=== PATIENT | female | born 1965 | race American Indian/Alaskan Native ===

== ENCOUNTER 2017-03-19 18:29 | Emergency (ER) | payer MEDICAID ==
[2017-03-19 20:22] LABS: Bilirubin,Urine NEG (Negative); Blood,Urine SM (Negative); Ketones,Urine NEG (Negative); Leukocyte Esterase,Urine NEG (Negative); Mucus,Urine FEW /HPF; Nitrite,Urine NEG (Negative); Protein,Urine <15 mg/dL mg/dL (Negative); Urobilinogen,Urine < 2.0 mg/dL (<2.0)
[2017-03-19] MEDS ORDERED: DECADRON IM ONE (22:39)
[2017-03-19] MEDS ORDERED: TORADOL IM ONE (22:39)
--- NOTE | 2017-03-19 22:44 | Emergency Department Report ---
ED Back Pain/Injury HPI - General Chief Complaint: Back Pain/Injury Stated Complaint: BACK PAIN Time Seen by Provider: 03/19/17 22:18 Source: patient Limitations: No Limitations - History of Present Illness Initial Comments: Patient comes into the ER today with complaints of lower back pain after lifting up a child 2 days ago. Patient states that she felt sudden sharp pain in her left lower back and a cracking sensation. Patient states that the pain was so severe that she was unable to move for a while. Patient has taken over- the-counter ibuprofen without any relief. Patient also states that she does have some discomfort when she urinates. MD Complaint: back pain -: Sudden, days(s) (2) - Related Data Home Medications Medication Instructions Recorded Confirmed Last Taken Diazepam 5 mg PO DAILY 03/19/17 03/19/17 1 Day Ago Methimazole [Tapazole] 2.5 mg PO QDAY 03/19/17 03/19/17 1 Day Ago Previous Rx's Medication Instructions Recorded Last Taken Type Meclizine [Antivert] 25 mg PO TID PRN #20 tablet 11/27/15 Unknown Rx Diazepam [Valium] 10 mg PO Q8H PRN #15 tablet 03/19/17 Unknown Rx predniSONE [Deltasone] 60 mg PO QDAY 5 Days 03/19/17 Unknown Rx traMADol [Ultram 50 MG tab] 50 mg PO Q4HR PRN #20 tablet 03/19/17 Unknown Rx Allergies Allergy/AdvReac Type Severity Reaction Status Date / Time erythromycin base Allergy Unknown Verified 11/27/15 04:54 ED Review of Systems ROS: Stated complaint: BACK PAIN Other details as noted in HPI Constitutional: denies: chills, fever Eyes: denies: eye pain, eye discharge, vision change ENT: denies: ear pain, throat pain Respiratory: denies: cough, shortness of breath, wheezing Cardiovascular: denies: chest pain, palpitations Endocrine: no symptoms reported Gastrointestinal: denies: abdominal pain, nausea, diarrhea Genitourinary: dysuria. denies: urgency, hematuria, discharge Musculoskeletal: back pain. denies: joint swelling, arthralgia Skin: denies: rash, lesions Neurological: denies: headache, weakness, paresthesias Psychiatric: denies: anxiety, depression Hematological/Lymphatic: denies: easy bleeding, easy bruising ED Past Medical Hx - Past Medical History Previous Medical History?: Yes Hx Psychiatric Treatment: Yes (anxiety) Additional medical history: hyperthyroidism - Surgical History Past Surgical History?: No - Social History Smoking Status: Never Smoker Substance Use Type: Alcohol - Medications Home Medications: Home Medications Medication Instructions Recorded Confirmed Last Taken Type Meclizine [Antivert] 25 mg PO TID PRN #20 tablet 11/27/15 03/19/17 Unknown Rx Diazepam 5 mg PO DAILY 03/19/17 03/19/17 1 Day Ago History Diazepam [Valium] 10 mg PO Q8H PRN #15 tablet 03/19/17 Unknown Rx Methimazole [Tapazole] 2.5 mg PO QDAY 03/19/17 03/19/17 1 Day Ago History predniSONE [Deltasone] 60 mg PO QDAY 5 Days 03/19/17 Unknown Rx traMADol [Ultram 50 MG tab] 50 mg PO Q4HR PRN #20 tablet 03/19/17 Unknown Rx ED Physical Exam - General Limitations: No Limitations General appearance: alert, in no apparent distress - Head Head exam: Present: atraumatic, normocephalic - Eye Eye exam: Present: normal appearance - ENT ENT exam: Present: mucous membranes moist - Neck Neck exam: Present: normal inspection, full ROM - Respiratory Respiratory exam: Present: normal lung sounds bilaterally. Absent: respiratory distress - Cardiovascular Cardiovascular Exam: Present: regular rate, normal rhythm. Absent: systolic murmur, diastolic murmur, rubs, gallop - GI/Abdominal GI/Abdominal exam: Present: soft, normal bowel sounds - Extremities Exam Extremities exam: Present: normal inspection, tenderness (left buttocks tenderness), normal capillary refill. Absent: full ROM (left hip flexion limited secondary to lumbar pain), pedal edema, joint swelling, calf tenderness - Back Exam Back exam: Present: normal inspection, tenderness (left lateral lumbar tenderness and SI joint tenderness.), muscle spasm, paraspinal tenderness. Absent: full ROM (Limited range of motion secondary to pain.), CVA tenderness (R ), CVA tenderness (L), vertebral tenderness - Neurological Exam Neurological exam: Present: alert, oriented X3, CN II-XII intact - Psychiatric Psychiatric exam: Present: normal affect, normal mood - Skin Skin exam: Present: warm, dry, intact, normal color. Absent: rash ED Course Vital Signs 03/19/17 19:48 Temperature 98.4 F Pulse Rate 90 Respiratory 18 Rate Blood Pressure 129/86 O2 Sat by Pulse 100 Oximetry ED Medical Decision Making - Medical Decision Making Patient is nontoxic and hemodynamically stable. Mechanism of injury and physical exam is more consistent with muscle strain. Patient does not have vertebral body tenderness. I see no purpose in obtaining x-ray imaging at this time. I will start patient on some anti-inflammatories, muscle relaxants, pain medications and have encouraged her to gradually increase activity over the next few days. I will give patient referral to orthopedic for further evaluation if symptoms resolve or worsen. Patient is in agreement with treatment plan and patient stable for discharge. Critical care attestation.: If time is entered above; I have spent that time in minutes in the direct care of this critically ill patient, excluding procedure time. ED Disposition Clinical Impression: Lumbar spine strain, Sciatica of left side Disposition: TO HOME OR SELFCARE Is pt being admited?: No Does the pt Need Aspirin: No Condition: Good Instructions: Sciatica (ED), Low Back Strain (ED) Prescriptions: Diazepam [Valium] 10 mg PO Q8H PRN #15 tablet PRN Reason: Muscle Spasm predniSONE [Deltasone] 60 mg PO QDAY 5 Days traMADol [Ultram 50 MG tab] 50 mg PO Q4HR PRN #20 tablet PRN Reason: Pain Referrals: PRIMARY CAREMD [Primary Care Provider] - 3-5 Days FAUSTO ALVES MD [Staff Physician] - 3-5 Days Time of Disposition: 22:46
[2017-03-19 23:11] VITALS: BP 143/87
== END 2017-03-19 23:27 | disposition home or self-care (01) ==
LOC: ED 18:29
DX: S39.012A Strain of muscle, fascia and tendon of lower back, initial encounter (principal); M54.32 Sciatica, left side; F41.9 Anxiety disorder, unspecified; E05.90 Thyrotoxicosis, unspecified without thyrotoxic crisis or storm; Z88.8 Allergy status to other drugs, medicaments and biological substances; X58.XXXA Exposure to other specified factors, initial encounter; Y93.89 Activity, other specified; Y92.89 Other specified places as the place of occurrence of the external cause; Y99.8 Other external cause status
CPT/HCPCS: 81001; 81025; 96372; 99283; J1100; J1885

== ENCOUNTER 2018-04-02 15:30 | Emergency (ER) | payer MEDICAID ==
[2018-04-02] MEDS ORDERED: LIDOCAINE VISCOUS 2% PO ONE (16:12)
--- NOTE | 2018-04-02 16:17 | Emergency Department Report ---
HPI - General Chief Complaint: Dyspnea/Respdistress Time Seen by Provider: 04/02/18 16:06 - HPI HPI: Sears 27 The patient is a 52-year-old female presenting with a chief complaint of swallowed fish bone. The patient states yesterday she was eating blue gleason fish when she felt herself swallow bone. The patient states it felt like it got stuck in her throat. The patient complains of foreign body sensation in her throat as well as difficulty breathing. Patient denies fever or any other forms of pain. Patient states her last meal consisted of a cheeseburger and possible salad which she ate without difficulty approximately 2.5 hours prior to arrival in the ED Location: Throat Duration: Onset yesterday Quality: Foreign body sensation Severity: Moderate Modifying factors: [see above] Context: [see above] Mode of transportation: Unknown ED Past Medical Hx - Past Medical History Previous Medical History?: Yes Hx Psychiatric Treatment: Yes (anxiety) Additional medical history: hyperthyroidism - Surgical History Past Surgical History?: No - Family History Family history: no significant - Social History Smoking Status: Never Smoker Substance Use Type: Alcohol (occasional) - Medications Home Medications: Home Medications Medication Instructions Recorded Confirmed Last Taken Type Meclizine [Antivert] 25 mg PO TID PRN #20 tablet 11/27/15 03/19/17 Unknown Rx Diazepam 5 mg PO DAILY 03/19/17 03/19/17 1 Day Ago History ~03/18/17 Diazepam [Valium] 10 mg PO Q8H PRN #15 tablet 03/19/17 Unknown Rx Methimazole [Tapazole] 2.5 mg PO QDAY 03/19/17 03/19/17 1 Day Ago History ~03/18/17 Nitrofurantoin [place]/M-Cryst 100 mg PO Q12HR #14 capsule 03/19/17 Unknown Rx [Macrobid CAP] predniSONE [Deltasone] 60 mg PO QDAY 5 Days tab 03/19/17 Unknown Rx traMADol [Ultram 50 MG tab] 50 mg PO Q4HR PRN #20 tablet 03/19/17 Unknown Rx Famotidine [Pepcid] 20 mg PO BID #20 tablet 04/02/18 Unknown Rx ED Review of Systems ROS: Stated complaint: SOB/SWALLOWED A FISH BONE Other details as noted in HPI Constitutional: denies: fever Eyes: denies: eye pain ENT: throat pain Respiratory: shortness of breath Cardiovascular: denies: chest pain Endocrine: denies: unexplained weight gain Gastrointestinal: denies: abdominal pain Genitourinary: denies: dysuria Musculoskeletal: denies: back pain Skin: denies: change in color Neurological: denies: headache Physical Exam - Physical Exam Vital Signs: Vital Signs 04/02/18 15:55 Temperature 98.4 F Pulse Rate 94 H Respiratory 16 Rate Blood Pressure 131/87 O2 Sat by Pulse 100 Oximetry Physical Exam: GENERAL: The patient is well-developed well-nourished female lying on stretcher not appearing to be in acute distress. [] HEENT: Normocephalic. Atraumatic. Extraocular motions are intact. Patient has moist mucous membranes. NECK: Supple. No stridor CHEST/LUNGS: Clear to auscultation. There is no respiratory distress noted. HEART/CARDIOVASCULAR: Regular. There is no tachycardia. There is no gallop rub or murmur. ABDOMEN: Abdomen is soft, nontender. Patient has normal bowel sounds. There is no abdominal distention. SKIN: There is no rash. There is no diaphoresis. NEURO: The patient is awake, alert, and oriented. The patient is cooperative. The patient has normal speech MUSCULOSKELETAL: There is no evidence of acute injury. ED Course Vital Signs 04/02/18 15:55 Temperature 98.4 F Pulse Rate 94 H Respiratory 16 Rate Blood Pressure 131/87 O2 Sat by Pulse 100 Oximetry - Consultations Consultation #1: 04/02/18 16:37 Gastroenterology paged 04/02/18 16:[address] Awan-states patient able to eat a meal without difficulty just prior to arrival makes foreign body unlikely. Given patient's strong warnings if symptoms do not improve over the next couple days to follow- up in the office ED Medical Decision Making - Radiology Data Radiology results: report reviewed (lateral soft tissue neck x-ray), image reviewed (lateral soft tissue neck x-ray) interpreted by me: Lateral soft tissue neck x-ray-no radiopaque foreign body seen - Differential Diagnosis foreign body throat, pharyngeal abrasion Critical care attestation.: If time is entered above; I have spent that time in minutes in the direct care of this critically ill patient, excluding procedure time. ED Disposition Clinical Impression: Swallowed foreign body, Throat pain in adult Disposition: DC-01 TO HOME OR SELFCARE Is pt being admited?: No Does the pt Need Aspirin: No Condition: Stable Additional Instructions: Return to the emergency department immediately should you develop worsening symptoms, fever, inability to tolerate food or liquid or any other concerns. Prescriptions: Famotidine [Pepcid] 20 mg PO BID #20 tablet Referrals: ANNABELLA AWAN MD [Staff Physician] - 2-3 Days (Dr. Awan is a track maintainer. Please follow up with him for further evaluation) Time of Disposition: 16:51
[2018-04-02 16:48] VITALS: BP 159/86
--- NOTE | 2018-04-02 17:22 | XRay Report ---
FINAL REPORT PROCEDURE: XR NECK SOFT TISSUE TECHNIQUE: Soft tissue neck radiographs, 2 views, including AP and lateral. CPT 26694 HISTORY: Swallowed fish bone. Foreign body sensation. COMPARISON: No prior studies are available for comparison. FINDINGS: Bone mineralization: Normal. Mild degenerative changes of the spine. Alignment: Normal. Soft tissues: Epiglottis and hypopharyngeal soft tissues normal. Foreign bodies: None. IMPRESSION: No radiographic evidence of radiopaque foreign body. Please note some foreign bodies are not radiopaque and therefore not visualized on radiograph.
== END 2018-04-02 16:56 | disposition home or self-care (01) ==
LOC: ED 15:30
DX: T18.8XXA Foreign body in other parts of alimentary tract, initial encounter (principal); R07.0 Pain in throat; F41.9 Anxiety disorder, unspecified; T17.228A Food in pharynx causing other injury, initial encounter; X58.XXXA Exposure to other specified factors, initial encounter; Y93.89 Activity, other specified; Y99.8 Other external cause status; Y92.89 Other specified places as the place of occurrence of the external cause
CPT/HCPCS: 70360

== ENCOUNTER 2020-11-03 17:06 | Emergency (ER) | payer MEDICAID ==
[2020-11-03 18:32] VITALS: BP 150/95
--- NOTE | 2020-11-03 18:34 | Emergency Department Report ---
Chief Complaint: Skin Rash Stated Complaint: PAINFUL RASH Time Seen by Provider: 11/03/20 18:28 - HPI History of Present Illness: pt is a 54 yo female who presents to the ED with c/o a painful, itching rash for 2 months. she states she has been seeing a cellular equipment installer. she states she has been to the cellular equipment installer 7 times. she states she had a biopsy. she states that she has been on steroids and using triamcinolone. she states it does not appear to be improving. she denies any facial swelling, difficulty breathing, fever, n/v/d. Vitals are stable On exam: Macular papular rash present in a [place] tree distribution on the back, the rash is not present anywhere else, no blistering, no drainage, no necrosis, no skin denuding, no surrounding erythema, no signs of infection Examination appears consistent with pityriasis rosea Patient is already seeing a cellular equipment installer and has had a biopsy She is already on the appropriate medications Advised patient to follow back up with a cellular equipment installer Discussed strict return precautions Medical screen examination performed there is no threat to life or limb at this time MSE screening note: Focused history and physical exam performed. Due to findings the following was ordered: ED Disposition for MSE Clinical Impression: Pityriasis rosea Disposition: MED SCREENING EXAM-LEFT Is pt being admited?: No Does the pt Need Aspirin: No Condition: Stable Instructions: Pityriasis Rosea Additional Instructions: please continue using your medications. follow up with a primary care doctor. return to the emergency room for any new or worsening symptoms. Referrals: your, cellular equipment installer [Other] - 2-3 Days Time of Disposition: 18:33 Print Language: NIGERIEN
== END 2020-11-03 19:03 | disposition left against medical advice (07) ==
LOC: ED 17:06
DX: L42 Pityriasis rosea (principal); Z53.21 Procedure and treatment not carried out due to patient leaving prior to being seen by health care provider